=== PATIENT | female | born 1995 | race Caucasian/White ===

== ENCOUNTER 2021-11-02 10:58 | Emergency (ER) | payer OTHER ==
[~2021-11-02] VITALS: Ht 152.4 cm; Wt 50.0 kg
[2021-11-02 12:42] VITALS: BP 124/77
== END 2021-11-02 12:48 | disposition home or self-care (01) ==
LOC: EMS 11:01
DX: Z11.1 Encounter for screening for respiratory tuberculosis (principal)
CPT/HCPCS: 71045; 99283